=== PATIENT | male | born 1975 | race Caucasian/White ===

== ENCOUNTER 2018-07-04 16:21 | Emergency (ER) | payer OTHER ==
[~2018-07-04] VITALS: Ht 180.3 cm; Wt 77.0 kg
[2018-07-04] MEDS ORDERED: SODIUM CHLORIDE 0.9% 2,000 ML IV ONE (18:21)
[2018-07-04] MEDS ORDERED: LORAZEPAM 2MG/ML CPJ IV STA (18:21)
[2018-07-04 19:37] LABS: BASOPHILS % 1.6 % (0.0-2.0); EOSINOPHILS % 1.8 % (0.0-5.0); HEMATOCRIT. 43.8 % (42.0-52.0); HEMOGLOBIN. 15.7 g/dL (14.0-18.0); LYMPHOCYTES % 28.8 % (20.0-50.0); MEAN CORPUSCULAR HEMOGLOBIN 31.7 pg (28.0-32.0); MEAN CORPUSCULAR VOLUME 88.4 fL (80.0-94.0); MEAN PLATELET VOLUME 8.6 fl (7.4-10.4); MONOCYTES % 10.9 % (2.0-8.0); NEUTROPHILS % 56.9 % (40.0-76.0); PLATELET 254 x1000/uL (130-400); RED BLOOD CELL COUNT 4.95 mill/uL (4.7-6.1); RED CELL DISTRIBUTION WIDTH 13.4 % (11.6-14.6)
[2018-07-04 19:43] LABS: CHLORIDE 106 mEq/L (98-107)
[2018-07-04 19:48] LABS: ETHANOL BLOOD < 10 mg/dL
[2018-07-04] MEDS ORDERED: POTASSIUM CHLORIDE 20MEQ TABLET SR PO ONE (20:45)
[2018-07-04 22:05] LABS: CLARITY URINE CLEAR (CLEAR); COLOR URINE YELLOW (YELLOW); KETONES URINE NEGATIVE (NEGATIVE); LEUKOCYTE ESTERASE URINE NEGATIVE (NEGATIVE); NITRITE URINE NEGATIVE (NEGATIVE); OCCULT BLOOD URINE NEGATIVE (NEGATIVE); PH URINE 6.5 (4.5-8.0); PROTEIN URINE NEGATIVE (NEGATIVE); SPECIFIC GRAVITY URINE 1.012 (1.005-1.030)
[2018-07-04 22:37] LABS: *AMPHETAMINES SCREEN URINE PRESUMTIVE POSITIVE (NEGATIVE)
[2018-07-04 22:38] LABS: *BARBITURATES SCREEN URINE NEGATIVE (NEGATIVE); *BENZODIAZEPINES SCREEN URINE NEGATIVE (NEGATIVE); *COCAINE SCREEN URINE NEGATIVE (NEGATIVE); METHADONE URINE SCREEN NEGATIVE (NEGATIVE); OPIATES URINE SCREEN NEGATIVE (NEGATIVE); PHENCYCLIDINE URINE SCREEN NEGATIVE (NEGATIVE)
[2018-07-04 22:40] LABS: CANNABINOID URINE SCREEN PRESUMTIVE POSITIVE (NEGATIVE)
[2018-07-05] MEDS ORDERED: LORAZEPAM 1MG TABLET PO ONE ×2 (08:45→15:45)
[2018-07-06] MEDS ORDERED: LORAZEPAM 1MG TABLET PO ONE ×2 (08:00)
[2018-07-06 08:52] VITALS: BP 117/77
== END 2018-07-06 08:52 | disposition home or self-care (01) ==
LOC: ER 16:51
DX: R45.851 Suicidal ideations (principal); T51.0X1A Toxic effect of ethanol, accidental (unintentional), initial encounter; F10.10 Alcohol abuse, uncomplicated; Y90.0 Blood alcohol level of less than 20 mg/100 ml; T43.621A Poisoning by amphetamines, accidental (unintentional), initial encounter; T40.7X1A Poisoning by cannabis (derivatives), accidental (unintentional), initial encounter; F12.10 Cannabis abuse, uncomplicated; F15.10 Other stimulant abuse, uncomplicated; F41.9 Anxiety disorder, unspecified; E87.6 Hypokalemia; Y92.89 Other specified places as the place of occurrence of the external cause
CPT/HCPCS: 36415; 71045; 80053; 80305; 80307; 80329; 81003; 85025; 96374; 99285; G0482; J2060; J7030; Z7610